=== PATIENT | female | born 1985 | race Asian ===

== ENCOUNTER 2024-01-27 05:26 | Emergency (ER) | payer SELFPAY ==
[~2024-01-27] VITALS: Ht 160 cm; Wt 100.0 kg
[2024-01-27] MEDS: diphenhdrAMINE HCL 50 MG/1 ML VL IM ONE (06:01)
[2024-01-27] MEDS: methylPREDNISolone SOD SUCC 125 MG/2 ML VL IM ONE (06:01)
[2024-01-27] MEDS: ALBUTEROL SULF 2.5 MG/0.5ML(0.5%) NEB SOLN NEB ONE (06:06)
[2024-01-27 06:50] VITALS: BP 124/76; TEMP 98.3
[2024-01-27 07:22] VITALS: PULSE 98; RESP 18; O2SAT 98
[2024-01-27] MEDS: EPINEPHrine HCL 1 MG/1 ML AMP SC ONE (07:27)
[2024-01-27] MEDS ORDERED: PRED20TA2 PO (07:40)
[2024-01-27] MEDS ORDERED: HYDR50TA69 PO (07:40)
== END 2024-01-27 07:41 | disposition home or self-care (01) ==
LOC: ER 05:26
DX: T78.49XA Other allergy, initial encounter (principal); R07.0 Pain in throat; Z79.899 Other long term (current) drug therapy; X58.XXXA Exposure to other specified factors, initial encounter
CPT/HCPCS: 94640; 96372; 99284; J0171; J1200; J2919

== ENCOUNTER 2024-01-27 13:43 | Emergency (ER) | payer SELFPAY ==
[~2024-01-27] VITALS: Ht 160 cm; Wt 104.2 kg
[~2024-01-27 13:43] MED LIST: HYDR50TA69 PO; PRED20TA2 PO
[2024-01-27 15:32] VITALS: BP 143/94; PULSE 130; RESP 24; TEMP 99.6; O2SAT 96
[2024-01-27] MEDS: EPINEPHrine HCL 1 MG/1 ML AMP SC ONE (15:59)
== END 2024-01-27 16:07 | disposition home or self-care (01) ==
LOC: ER 13:43
DX: T78.49XD Other allergy, subsequent encounter (principal); M79.18 Myalgia, other site; Z79.899 Other long term (current) drug therapy; X58.XXXD Exposure to other specified factors, subsequent encounter
CPT/HCPCS: 96372; 99283; J0171